=== PATIENT | female | born 1965 | race Asian ===

== ENCOUNTER 2017-08-17 00:14 | Emergency (ER) | payer OTHER ==
[~2017-08-17] VITALS: Ht 160 cm; Wt 55.8 kg
[2017-08-17 00:25] VITALS: BP 122/79
[2017-08-17] MEDS ORDERED: DiphenhydrAMINE 50mg/ml Inj IVP ONE (00:45)
[2017-08-17] MEDS ORDERED: Solu-MEDROL 125mg Inj IVP ONE (00:45)
[2017-08-17] MEDS ORDERED: PREDNISONE20 MG ORAL (01:34)
[2017-08-17] MEDS ORDERED: BENADRYL25 MG ORAL (01:34)
--- NOTE | 2017-08-17 01:35 | Emergency Room Report ---
History of Present Illness General Chief Complaint: Allergic Reaction Source: Patient Present Illness [facility] This is a 51-year-old M[place] female with no significant past medical history. She presents with treatment of allergic reaction. This morning she took some M[place]ese ginseng extract that with mixed in with other vitamins. This was for cold and coughing. An hour after which she broke a rash. Was very itchy. No respiratory issue. She took Benadryl throughout the day without much relief. No fever chills. No nausea no vomiting. Never had this before. Allergies: Coded Allergies: No Known Allergies (Unverified , 08/17/17) Patient History Past Medical History: see triage record, old chart reviewed Past Surgical History: none Pertinent Family History: none Social History: Denies: smoking Last Menstrual Period: NONE Now: No Immunizations: other Reviewed Nursing Documentation: PMH: Agreed, PSxH: Agreed Nursing Documentation-PMH Past Medical History: No Stated History Review of Systems Eye: Denies: eye pain, blurred vision ENT: Denies: ear pain, nose congestion, throat swelling Respiratory: Denies: cough, shortness of breath Cardiovascular: Denies: chest pain, palpitations Gastrointestinal: Denies: abdominal pain, diarrhea, nausea, vomiting Musculoskeletal: Denies: back pain, joint pain Skin: Reports: rash Neurological: Denies: headache, numbness Endocrine: Denies: increased thirst, increased urine Hematologic/Lymphatic: Denies: easy bruising All Other Systems: negative except mentioned in HPI Physical Exam Vital Signs Date Time Temp Pulse Resp B/P (MAP) Pulse Ox O2 Delivery O2 Flow Rate FiO2 08/17/17 00:18 97.9 76 18 126/81 99 Room Air 97.9 vitals normal Sp02 EP Interpretation: reviewed, normal General Appearance: well appearing, no apparent distress, alert Head: normocephalic, atraumatic Eyes: bilateral eye PERRL, bilateral eye EOMI ENT: hearing grossly normal, normal pharynx Neck: full range of motion, supple, no meningismus Respiratory: chest non-tender, lungs clear, normal breath sounds Cardiovascular #1: regular rate, rhythm, no murmur Gastrointestinal: normal bowel sounds, non tender, no mass, no organomegaly, no bruit, non-distended Musculoskeletal: back normal, gait/station normal, normal range of motion Neurologic: alert, oriented x3, responsive Psychiatric: mood/affect normal Skin: warm/dry, rash - Diffuse urticaria on her body. Medical Decision Making Diagnostic Impression: Primary Impression: Allergic reaction Qualified Codes: T78.40XA - Allergy, unspecified, initial encounter ER Course Patient with allergic reaction to her M[place]ese supplements. No evidence of anaphylaxis or respiratory issue. No tendon edema. We'll discharge home. She felt better after signing Medrol and Benadryl. Last Vital Signs Date Time Temp Pulse Resp B/P (MAP) Pulse Ox O2 Delivery O2 Flow Rate FiO2 08/17/17 00:25 97.8 78 17 122/79 99 Room Air 97.8 Status: improved Disposition: HOME, SELF-CARE Condition: Stable Scripts Diphenhydramine Hcl* (BENADRYL*) 25 Mg Capsule 50 MG ORAL Q6H Y for Itching, #30 CAP Prov: KP CASTAÑEDA M.D. 08/17/17 Prednisone* (PREDNISONE*) 20 Mg Tablet 60 MG ORAL DAILY, #9 TAB Prov: KP CASTAÑEDA M.D. 08/17/17 Patient Instructions: Allergies Additional Instructions: Follow-up with your doctor in 2 to 3 days for recheck. Return if symptoms worsen. KP CASTAÑEDA M.D. Aug 17, 2017 01:35
[2017-08-17 01:40] VITALS: BP 120/77
[2017-08-17 01:43] VITALS: BP 120/77
== END 2017-08-17 01:43 | disposition home or self-care (01) ==
LOC: EMR 00:35
DX: T78.40XA Allergy, unspecified, initial encounter (principal); X58.XXXA Exposure to other specified factors, initial encounter
CPT/HCPCS: 96374; 96375; 99284; J1200; J2930